=== PATIENT | female | born 1960 | race Caucasian/White ===

== ENCOUNTER 2023-03-31 11:11 | Emergency (ER) | payer OTHER ==
[2023-03-31 12:10] LABS: STREP A BY PCR NOT DETECTED (NOT DETECT)
[2023-03-31 12:23] LABS: CORONAVIRUS COVID-19 NAA NEGATIVE (NEGATIVE); INFLUENZA A NAA NEGATIVE (NEGATIVE); INFLUENZA B NAA NEGATIVE (NEGATIVE); RESPIRATORY SYNCYTIAL VIR NAA NEGATIVE (NEGATIVE)
== END 2023-03-31 12:51 | disposition home or self-care (01) ==
LOC: JP.ED 11:11
DX: H66.90 Otitis media, unspecified, unspecified ear (principal); Z79.899 Other long term (current) drug therapy
CPT/HCPCS: 0241U; 87651-QW; 99283

== ENCOUNTER 2023-07-08 09:20 | Emergency (ER) | payer OTHER ==
[2023-07-08 09:54] LABS: APPEARANCE,URINE TURBID (CLEAR); BILIRUBIN,URINE NEGATIVE (NEGATIVE); COLOR,URINE YELLOW (YELLOW); GLUCOSE,URINE NEGATIVE (NEGATIVE); KETONES,URINE NEGATIVE (NEGATIVE); LEUKOCYTE ESTERASE,URINE LARGE (NEGATIVE); NITRITE,URINE POSITIVE (NEGATIVE); OCCULT BLOOD,URINE SMALL (NEGATIVE); PH,URINE 5.5 (5.0-8.0); PROTEIN,URINE TRACE mg/dL (NEGATIVE); UROBILINOGEN,URINE 0.2 EU/dL (0.2-1.0)
[2023-07-08 10:28] LABS: AMORPHOUS SEDIMENT,URINE MODERATE; BACTERIA,URINE MANY; EPITHELIAL CELLS,URINE NOT SEEN; MUCUS,URINE RARE; WBC,URINE 75-100 (0-5)
== END 2023-07-08 10:48 | disposition home or self-care (01) ==
LOC: JP.ED 09:20
DX: N39.0 Urinary tract infection, site not specified (principal); E03.9 Hypothyroidism, unspecified; Z79.899 Other long term (current) drug therapy
CPT/HCPCS: 81001; 87086; 87088; 87186; 99283

== ENCOUNTER 2023-07-23 17:30 | Emergency (ER) | payer OTHER ==
[2023-07-23 18:23] LABS: BASOPHILS ABSOLUTE AUTO 0.01 K/uL (0.00-0.10); BASOPHILS PERCENT AUTO 0.1 % (0.1-1.3); EOSINOPHILS PERCENT AUTO 1.4 % (0.0-5.4); HEMATOCRIT 38.9 % (34.3-46.0); HEMOGLOBIN 13.9 g/dL (11.2-15.5); IMMATURE GRAN ABSOLUTE AUTO 0.03 K/uL (0.00-0.23); IMMATURE GRAN PERCENT AUTO 0.4 % (0.0-0.7); LYMPHOCYTES ABSOLUTE AUTO 0.16 K/uL (0.8-3.3); LYMPHOCYTES PERCENT AUTO 2.2 % (11.4-47.7); MEAN CORPUSCULAR HEMOGLOBIN 31.5 pg (31.6-35.5); MEAN CORPUSCULAR HGB CONC 35.7 g/dL (31.6-35.5); MEAN CORPUSCULAR VOLUME 88.2 fL (81.4-99.0); MONOCYTES ABSOLUTE AUTO 0.23 K/uL (0.20-0.90); MONOCYTES PERCENT AUTO 3.2 % (3.3-12.6); NEUTROPHILS ABSOLUTE AUTO 6.63 K/uL (1.0-7.6); NEUTROPHILS PERCENT AUTO 92.7 % (40.0-78.1); PLATELET COUNT,PLT 163 K/uL (130-375); RED BLOOD CELL COUNT 4.41 M/uL (3.77-5.24); WHITE BLOOD CELL COUNT,WBC 7.2 K/uL (3.2-11.0)
[2023-07-23] MEDS: Ondansetron 4 MG/2 ML SDV IVPUSH ONE (18:23)
[2023-07-23] MEDS: Sodium Chloride 0.9% 1,000 ML IV ONE ×2 (18:23→20:33)
[2023-07-23 18:44] LABS: ALANINE AMINOTRANSFERASE,ALT 34 U/L (12-78); ALBUMIN 3.2 g/dL (3.4-5.0); ALKALINE PHOSPHATASE 81 U/L (46-116); ASPARTATE AMNIOTRANSFERASE,AST 18 U/L (15-37); BILIRUBIN TOTAL 0.5 mg/dL (0.2-1.0); BLOOD UREA NITROGEN,BUN 18 mg/dL (7-18); CALCIUM 8.9 mg/dL (8.5-10.1); CARBON DIOXIDE,CO2 27 mmol/L (21-32); CHLORIDE,CL 100 mmol/L (100-108); CREATININE 0.8 mg/dL (0.6-1.0); ESTIMATED GFR 84 mL/min (>60); GLUCOSE RANDOM 154 mg/dL (74-106); POTASSIUM,K 3.8 mmol/L (3.6-5.2); PROTEIN TOTAL,TP 6.3 g/dL (6.4-8.2); SODIUM,NA 135 mmol/L (140-148)
[2023-07-23 18:45] LABS: ANION GAP 11.8 mmol/L (5.0-14.0)
[2023-07-23] MEDS: Ketorolac 30 MG/ML SDV IVPUSH ONE (19:07)
[2023-07-23] MEDS ORDERED: Naloxone 0.4 MG/ML SDV IVPUSH PRN (20:18)
[2023-07-23] MEDS: HYDROmorphone 1 MG/ML Syringe IVPUSH ONE (20:25)
[2023-07-23 21:58] LABS: APPEARANCE,URINE SLIGHTLY CLOUDY (CLEAR); BILIRUBIN,URINE SMALL (NEGATIVE); COLOR,URINE YELLOW (YELLOW); GLUCOSE,URINE NEGATIVE (NEGATIVE); KETONES,URINE NEGATIVE (NEGATIVE); LEUKOCYTE ESTERASE,URINE MODERATE (NEGATIVE); NITRITE,URINE NEGATIVE (NEGATIVE); OCCULT BLOOD,URINE NEGATIVE (NEGATIVE); PROTEIN,URINE TRACE mg/dL (NEGATIVE)
[2023-07-23 22:10] LABS: RBC,URINE 0-5 (0-5); WBC,URINE 30-40 (0-5)
[2023-07-23 22:11] LABS: BACTERIA,URINE FEW; EPITHELIAL CELLS,URINE MODERATE
[2023-07-23 22:12] LABS: AMORPHOUS SEDIMENT,URINE NOT SEEN; MUCUS,URINE MODERATE
[2023-07-23] MEDS: Sulfamethoxazole/Trimethoprim 800-160 MG Tab PO ONE (22:57)
== END 2023-07-23 23:00 | disposition home or self-care (01) ==
LOC: JP.ED 17:30
DX: J01.10 Acute frontal sinusitis, unspecified (principal); N39.0 Urinary tract infection, site not specified; Z79.899 Other long term (current) drug therapy; Z79.890 Hormone replacement therapy; E03.9 Hypothyroidism, unspecified; Z86.16 Personal history of COVID-19
CPT/HCPCS: 36415; 71046; 80053; 81001; 83690; 84443; 85025; 85651; 86140; 96361; 96374; 96375; 99284; A9270; J1170; J1885; J2405; J7030

== ENCOUNTER 2023-10-26 10:02 | Emergency (ER) | payer OTHER | END 2023-10-26 10:59 | disposition home or self-care (01) | LOC: JP.ED 10:02 | DX: L03.032 Cellulitis of left toe (principal); E03.9 Hypothyroidism, unspecified; Z79.890 Hormone replacement therapy; Z79.899 Other long term (current) drug therapy; Z86.16 Personal history of COVID-19 | CPT/HCPCS: 99283 ==

== ENCOUNTER 2023-11-27 11:26 | Emergency (ER) | payer OTHER ==
[2023-11-27 12:57] LABS: APPEARANCE,URINE CLOUDY (CLEAR); BILIRUBIN,URINE NEGATIVE (NEGATIVE); COLOR,URINE YELLOW (YELLOW); GLUCOSE,URINE NEGATIVE (NEGATIVE); KETONES,URINE NEGATIVE (NEGATIVE); LEUKOCYTE ESTERASE,URINE SMALL (NEGATIVE); NITRITE,URINE POSITIVE (NEGATIVE); OCCULT BLOOD,URINE MODERATE (NEGATIVE); PH,URINE 5.5 (5.0-8.0); PROTEIN,URINE 30 mg/dL (NEGATIVE); UROBILINOGEN,URINE 0.2 EU/dL (0.2-1.0)
[2023-11-27 13:03] LABS: AMORPHOUS SEDIMENT,URINE NOT SEEN; BACTERIA,URINE MANY; EPITHELIAL CELLS,URINE NOT SEEN; MUCUS,URINE MODERATE; RBC,URINE 50-75 (0-5); WBC,URINE 75-100 (0-5)
== END 2023-11-27 14:13 | disposition home or self-care (01) ==
LOC: JP.ED 11:26
DX: S09.90XA Unspecified injury of head, initial encounter (principal); N39.0 Urinary tract infection, site not specified; E03.9 Hypothyroidism, unspecified; Z86.16 Personal history of COVID-19; Z79.899 Other long term (current) drug therapy; W55.12XA Struck by horse, initial encounter
CPT/HCPCS: 70450; 70450-26; 70486; 70486-26; 72125; 72125-26; 76377; 76377-26; 81001; 87086; 87088; 87186; 99284

== ENCOUNTER 2023-12-07 10:34 | Emergency (ER) | payer OTHER | END 2023-12-07 13:24 | disposition home or self-care (01) | LOC: JP.ED 10:34 | DX: S90.934A Unspecified superficial injury of right lesser toe(s), initial encounter (principal); E03.9 Hypothyroidism, unspecified; Z86.16 Personal history of COVID-19; Z79.890 Hormone replacement therapy; Z79.899 Other long term (current) drug therapy; W55.12XA Struck by horse, initial encounter | CPT/HCPCS: 73630-26-RT; 73630-RT; 99283 ==

== ENCOUNTER 2024-10-09 12:12 | Emergency (ER) | payer OTHER | END 2024-10-09 14:08 | disposition home or self-care (01) | LOC: JP.ED 12:12 | DX: L25.5 Unspecified contact dermatitis due to plants, except food (principal); Z79.899 Other long term (current) drug therapy; Z86.16 Personal history of COVID-19 | CPT/HCPCS: 99283 ==

== ENCOUNTER 2025-01-28 10:14 | Emergency (ER) | payer OTHER | END 2025-01-28 11:22 | disposition home or self-care (01) | LOC: JP.ED 10:14 | DX: S61.250A Open bite of right index finger without damage to nail, initial encounter (principal); L03.011 Cellulitis of right finger; E03.9 Hypothyroidism, unspecified; Z86.16 Personal history of COVID-19; Z79.890 Hormone replacement therapy; Z79.899 Other long term (current) drug therapy; W55.01XA Bitten by cat, initial encounter | CPT/HCPCS: 99283 ==

== ENCOUNTER 2025-02-24 10:35 | Emergency (ER) | payer OTHER ==
[2025-02-24 11:16] LABS: APPEARANCE,URINE CLOUDY (CLEAR); GLUCOSE,URINE NEGATIVE (NEGATIVE); OCCULT BLOOD,URINE TRACE-INTACT (NEGATIVE)
[2025-02-24 11:24] LABS: SQUAMOUS EPITHELIAL CELLS,UR NOT SEEN /HPF; UROTHELIAL CELLS,URINE NOT SEEN /HPF
== END 2025-02-24 12:18 | disposition home or self-care (01) ==
LOC: JP.ED 10:35
DX: N39.0 Urinary tract infection, site not specified (principal); I10 Essential (primary) hypertension; E03.9 Hypothyroidism, unspecified; Z79.890 Hormone replacement therapy; Z79.899 Other long term (current) drug therapy
CPT/HCPCS: 81001; 87086; 87088; 87186; 99283